=== PATIENT | female | born 1980 | race Hispanic/Latino ===

== ENCOUNTER 2024-04-09 05:38 | Inpatient (IN) | payer MEDICAID, OTHER ==
[2024-04-08 11:45] LABS: Hematocrit 41.4 % (34.9-44.5); Hemoglobin 13.5 g/dL (12.0-15.5); Mean Corpuscular HGB CONC 32.6 g/dL (32.0-36.0); Mean Corpuscular Hemoglobin 30.8 pg (27.0-33.0); Mean Corpuscular Volume 94.3 fL (81.6-98.3); Mean Platelet Volume 10.5 fL (7.4-10.4); Platelet Count 202 10x3/uL (150-450); RBC Distribution Width 14.1 % (11.5-14.5); Red Blood Cell (RBC) Count 4.39 10x6/uL (3.90-5.03); White Blood Cell (WBC) Count 10.1 10x3/uL (3.5-10.5)
[2024-04-08 12:26] LABS: HBsAg Index 0.19 S/CO (0-0.99); Hep B Surf Ag Non-Reactive S/CO (NonReactive)
[2024-04-08 12:27] LABS: Syphilis Antibody Nonreactive (Nonreactive); Syphilis Antibody Index 0.05 S/CO (<1.00 Non-Reactive)
[2024-04-09] MEDS ORDERED: Ketorolac Tromethamine 30 MG (1 mL) VIAL IVP PRN (06:58)
[2024-04-09] MEDS ORDERED: Moisturizing Cream (Eucerin) 113 GM JAR TOP PRN (06:58)
[2024-04-09] MEDS ORDERED: fentaNYL 50 mcg/mL 1 mL Vial SLOW IVP PRN ×2 (06:58→19:00)
[2024-04-09] MEDS ORDERED: Naloxone HCl 0.4 mg/ml Vial IV PRN (06:58)
[2024-04-09] MEDS ORDERED: Promethazine HCl 25 MG/ML VIAL IM PRN ×3 (06:58→11:30)
[2024-04-09] MEDS ORDERED: Meperidine HCl/PF 25 MG (1 mL) VIAL SLOW IVP PRN (06:58)
[2024-04-09] MEDS ORDERED: Naloxone HCl 0.4 mg/ml Vial IVP PRN ×2 (06:58)
[2024-04-09] MEDS ORDERED: diphenhydrAMINE 50 MG/ML VIAL IVP PRN (06:58)
[2024-04-09] MEDS ORDERED: HYDROmorphone 0.5 MG/0.5 ML SYRINGE SLOW IVP PRN (06:58)
[2024-04-09] MEDS ORDERED: Ondansetron PF 4 MG/2 ML Vial IVP PRN ×4 (06:58→11:30)
[2024-04-09] MEDS ORDERED: Ketorolac Tromethamine 30 MG (1 mL) VIAL IVP SCH (07:00)
[2024-04-09] MEDS ORDERED: Communication Order-Pharmacy FS SCH (07:00)
[2024-04-09 07:06] VITALS: BMI 29.0
[2024-04-09] MEDS ORDERED: hydrALAZINE 20 MG/ML VIAL SLOW IVP PRN ×2 (07:21→11:30)
[2024-04-09] MEDS ORDERED: Acetaminophen 500 MG TAB PO PRN (07:21)
[2024-04-09] MEDS ORDERED: Bicitra 30 ML UDCUP PO PRN (07:21)
[2024-04-09] MEDS ORDERED: Oxytocin 30 units/NS 500 ML 500 ML IV SCH (07:21)
[2024-04-09] MEDS ORDERED: Lactated Ringer's 1,000 ML IV SCH (07:21)
[2024-04-09] MEDS ORDERED: Famotidine/PF 20 mg/2ml Vial SLOW IVP PRN (07:21)
[2024-04-09] MEDS ORDERED: Simethicone Chewable 80 MG TAB PO PRN (11:30)
[2024-04-09] MEDS ORDERED: Lanolin Ointment 7 GM TUBE TOP PRN (11:30)
[2024-04-09] MEDS ORDERED: Acetaminophen 325 MG TAB PO PRN (11:30)
[2024-04-09] MEDS ORDERED: diphenhydrAMINE 25 MG CAP PO PRN (11:30)
[2024-04-09] MEDS ORDERED: Bisacodyl 10 MG SUPP PR PRN (11:30)
[2024-04-09] MEDS: Hepatitis B Vaccine 10 MCG/0.5 ML SYR ONE (11:34)
[2024-04-09] MEDS: Phytonadione Neonatal 1 MG/0.5 ML AMP ONE (11:34)
[2024-04-09] MEDS: Erythromycin Base 0.5% Oint 1 GM TUBE ONE (11:34)
[2024-04-09] MEDS: fentaNYL 50 mcg/mL 1 mL Vial ONE (11:35)
[2024-04-09] MEDS: PHENYLEPHRINE-NS 100 MCG/ML 10 ML SYRINGE ONE (11:35)
[2024-04-09] MEDS: Oxytocin 10 UNITS/ML VIAL ONE (11:35)
[2024-04-09] MEDS: Ondansetron PF 4 MG/2 ML Vial ONE (11:35)
[2024-04-09] MEDS: Morphine PF 10 MG/10 ML VIAL ONE (11:35)
[2024-04-09] MEDS: CEFAZOLIN 2 GM VIAL ONE (11:36)
[2024-04-09] MEDS: Dexmedetomidine 200 MCG/2 ML VIAL ONE (11:36)
[2024-04-09] MEDS: Ketorolac Tromethamine 30 MG (1 mL) VIAL ONE (11:36)
[2024-04-09] MEDS: Boostrix 0.5 ML (Tdap) VIAL (>/=7 yrs of age) IM ONE (13:23)
[2024-04-09] MEDS: Ferrous Sulfate 325 MG TAB PO SCH ×2 (13:24→23:01)
[2024-04-09] MEDS: Docusate 100 MG CAP PO SCH ×2 (13:24→21:11)
[2024-04-09] MEDS: Prenatal Vitamin 1 TAB PO SCH (13:24)
[2024-04-09] MEDS: HYDROcodone/Acetaminophen 5/325 mg Tablet PO PRN (21:12)
[2024-04-10 05:28] LABS: Hematocrit 34.6 % (34.9-44.5); Hemoglobin 11.3 g/dL (12.0-15.5); Mean Corpuscular HGB CONC 32.7 g/dL (32.0-36.0); Mean Corpuscular Volume 94.8 fL (81.6-98.3); Mean Platelet Volume 10.3 fL (7.4-10.4); Platelet Count 175 10x3/uL (150-450); RBC Distribution Width 14.2 % (11.5-14.5); Red Blood Cell (RBC) Count 3.65 10x6/uL (3.90-5.03); White Blood Cell (WBC) Count 8.6 10x3/uL (3.5-10.5)
[2024-04-10] MEDS: Prenatal Vitamin 1 TAB PO SCH (09:25)
[2024-04-10] MEDS: HYDROcodone/Acetaminophen 5/325 mg Tablet PO PRN (09:25)
[2024-04-10] MEDS: Ibuprofen 800 MG TAB PO SCH (13:08)
[2024-04-11 11:13] VITALS: BP 113/56; TEMP 98.4
== END 2024-04-11 17:20 | disposition home or self-care (01) | DRG 788 ==
LOC: CSHLD 05:38 → CSHPP 10:25
PROVIDERS: ADMIT Student in an Organized Health Care Education/Training Program; ATTEND Student in an Organized Health Care Education/Training Program
PROC: 10D00Z1 Extraction of Products of Conception, Low, Open Approach (ICD-10-PCS; principal; 2024-04-09)
DX: O34.211 Maternal care for low transverse scar from previous cesarean delivery (principal); Z3A.39 39 weeks gestation of pregnancy; Z37.0 Single live birth; Z79.82 Long term (current) use of aspirin; O99.824 Streptococcus B carrier state complicating childbirth
CPT/HCPCS: 36415; 51702; 85027; 86780; 86850; 86900; 86901; 87340; J1885; J2274; J2405; J2590; J3010